=== PATIENT | male | born 1975 | race Caucasian/White ===

== ENCOUNTER 2021-07-09 16:25 | Emergency (ER) | payer OTHER ==
[~2021-07-09] VITALS: Ht 165.1 cm; Wt 95.6 kg
[2021-07-09 16:25] VITALS: BP 144/62
[2021-07-09] MEDS ORDERED: SMZ/TMP 800/160MG TABLET. PO ONE (17:00)
[2021-07-09] MEDS ORDERED: SULF1TAB24 PO (17:07)
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
== END 2021-07-09 17:17 | disposition home or self-care (01) ==
LOC: ER 16:25
DX: L02.212 Cutaneous abscess of back [any part, except buttock and flank] (principal)
CPT/HCPCS: 99283

== ENCOUNTER 2021-07-13 23:41 | Emergency (ER) | payer OTHER ==
[~2021-07-13] VITALS: Ht 175.3 cm; Wt 98.5 kg
[~2021-07-13 23:41] MED LIST: SULF1TAB24 PO
--- NOTE | 2021-07-13 23:49 | PHYS DOC ---
Past History Past Surgical History: Other Alcohol Use: None Adult General HPI HPI Patient is a 46-year-old male presenting for flank abscess. He was seen at our facility 5 days prior and subsequently discharged with supportive care, local wound care and Bactrim prescription. Reports he is currently on day 5 of antibiotics without significant relief, reports it has been firming up, getting larger and has 3 pustule heads. He is concern for ongoing growth and requesting incision and drainage at this time. No systemic symptoms or other concerning signs or symptoms Review of Systems Review of Systems Fourteen body systems of review of systems have been reviewed. See HPI for pertinent positives and negative responses, other leo all other systems are ne gative, non-pertinent or non-contributory Allergies Allergies Allergies Coded Allergies Type Severity Reaction Last Updated Verified No Known Drug Allergies 07/09/21 No Physical Exam Physical Exam Constitutional: Well developed, well nourished, no acute distress, non-toxic appearance. HENT: Normocephalic, atraumatic, bilateral external ears normal, oropharynx moist, no oral exudates, nose normal. Eyes: PERRLA, EOMI, conjunctiva normal, no discharge. Neck: Normal range of motion, no tenderness, supple, no stridor. Cardiovascular: Heart rate regular, sinus rhythm, no murmurs rubs or gallops Lungs & Thorax: Bilateral breath sounds clear to auscultation Abdomen: Bowel sounds normal, soft, no tenderness, no masses, no pulsatile masses. Nonsurgical abdomen, no peritoneal signs Skin: Warm, dry, no rash. There is a firm fixed area on posterior left flank at base superior to pubic crest concerning for active abscess with 3 pustular heads, there is fluctuance with palpation and drainage of mucopurulent malodorous material present without any crepitus, streaking Back: No tenderness, no CVA tenderness. Extremities: No tenderness, no cyanosis, no clubbing, ROM intact, no edema. Neurologic: Alert and oriented X 3, grossly normal motor & sensory function, no focal deficits noted. Psychologic: Affect normal, judgement normal, mood normal. Current Patient Data Vital Signs Vital Signs Date Time Temp Pulse Resp B/P (MAP) Pulse Ox O2 Delivery O2 Flow Rate FiO2 07/13/21 23:55 18 Vital Signs Date Time Temp Pulse Resp B/P (MAP) Pulse Ox O2 Delivery O2 Flow Rate FiO2 07/13/21 23:55 18 EKG EKG [] Radiology/Procedures Radiology/Procedures [] Heart Score C/O Chest Pain: No Risk Factors: Risk Factors: DM, Current or recent (<one month) smoker, HTN, HLP, family history of CAD, obesity. Risk Scores: Risk Factors: DM, Current or recent (<one month) smoker, HTN, HLP, family history of CAD, obesity. Course & Med Decision Making Course & Med Decision Making ABCs unremarkable HPI physical exam and comprehensive ER work-up concerning for abscess with active indication for incision and drainage and patient who is on day five of Bactrim Consent obtained. Incision and drainage performed that was well-tolerated by patient with significant amount of mucopurulent abscess expression and removal Discussed limited indication for further diagnostic or work-up in ER setting. I disclosed need for continued wound care practices and also antibiotic use to completion. Joint decision given extensive nature of abscess to extend Bactrim from 7 to 14 days total of treatment Patient was educated on risks and benefits of doing this such as prolonged use of Bactrim and effects it can have on kidneys and increased risk for skin issues etc. Strict return precautions were discussed with good understanding by patient, all questions and concerns addressed prior to ER departure Dragon Disclaimer Dragon Disclaimer This electronic medical record was generated, in whole or in part, using a voice recognition dictation system. Incision and Drainage Incision and Drainage : Site: Left posterior flank Blade Size: 11 Progress Indication is abscess to left flank with numerous mucopurulent pustular heads, firmness, erythema greater than 5 cm in diameter and worsening symptoms despite being on Bactrim Verbal consent obtained after risks and benefits of incision and drainage discussed at length with patient in addition to alternative treatment modalities Patient was placed in prone position. He was given [place] five preprocedurally. Overlying abscess was wiped clean with alcohol prep pad and a total of 3 cc 1% lidocaine was administered subcutaneously. Using a #11 scalpel, a linear continuous 2 inch cut was made with immediate expulsion of malodorous mucopurulent material. Cultures were obtained. Q-tip and base of scalpel used to locate center of abscess cavity with continual manual expression of contents Patient's abscess cavity was further evacuated and evaluated with near complete resolution of all abscess loculations via blunt dissection. This was irrigated extensively with wound care solution afterwards. Patient tolerated procedure well. I discussed risk of packing versus not joint decision made to leave open for natural healing and expression of contents There were no reported or observed complications. Patient tolerated procedure well Departure Departure: Impression: Primary Impression: Abscess Disposition: HOME / SELF CARE / HOMELESS Condition: STABLE Referrals: PCP,NO (PCP) Additional Instructions: You were evaluated in the Emergency Department for an abscess. Your abscess was incised and drained in the Emergency Department. You should change the dressing every 24 hours. Please keep the areas surrounding the abscess clean and dry. Take the antibiotics prescribed to you in full as directed. As disclose it is recommended that you follow-up within the next 72 hours by PCP for repeat wound evaluation. Continued wound care practices advised such as warm soaks to facilitate ongoing drainage in addition to taking antibiotics As discussed, your previous antibiotics were extended for a total duration of treatment of 14 days with Bactrim. This comes at elevated risk of kidney involvement and potential skin problems. Return to the Emergency Department if you experience worsening pain, persistent fevers greater than 100.4, an increase in area of redness, skin rash or changes, increased tenderness/warmth around the abscess, foul smelling discharge from the abscess, or any other concerning symptoms. Scripts Sulfamethoxazole/Trimethoprim (BACTRIM DS TABLET) 1 Each Tablet 1 TAB PO BID for abscess for 7 Days, #14 TAB 0 Refills Prov: LYNNETTE NORWOOD DO 07/14/21 LYNNETTE NORWOOD DO Jul 13, 2021 23:49
[2021-07-13] MEDS ORDERED: HYDROcodone/APAP 5/325MG 1 TAB TABLET ONE (23:54)
[2021-07-14] MEDS ORDERED: HYDROcodone/APAP 5/325MG 1 TAB TABLET PO ONE
[2021-07-14] MEDS ORDERED: SULF1TAB24 PO (00:27)
[2021-07-14 00:43] VITALS: BP 122/65
== END 2021-07-14 00:44 | disposition home or self-care (01) ==
LOC: ER 23:41
DX: L02.211 Cutaneous abscess of abdominal wall (principal)
CPT/HCPCS: 10060; 99283